=== PATIENT | male | born 1935 | race Two or more races ===

== ENCOUNTER 2019-06-19 20:52 | Inpatient (IN) | payer OTHER, MEDICARE ==
[2019-06-19] MEDS ORDERED: NORMAL SALINE 1000 ML 1,000 ML IV ONE ×2 (21:38→22:09)
--- NOTE | 2019-06-19 21:41 | ER Document Report ---
ED General - General Stated Complaint: FEVER Time Seen by Provider: 06/19/19 21:28 Notes: Patient is an 84-year-old male that comes emergency department for chief complai nt of shaking chills with suspected fever at home, he vomited twice, he reports feeling generally weak. Symptoms started today. Patient denies cough, chest pain, dizziness, headache, or any particular abdominal pain. He states he has been hurting on the left side of his back for a little while. He is visiting his family from [place]. Past medical history of hypertension, triple bypass, and takes daily aspirin. 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 He is not on chemotherapy or radiation. and daughter at bedside, daughter tra nslating at the patient's request. Patient did receive 1000 mg of Tylenol at 1930. - Related Data Allergies/Adverse Reactions: No Known Allergies Allergy (Verified 06/19/19 22:00) Past Medical History - General Information source: Patient - Social History Smoking Status: Never Smoker Drug Abuse: None Lives with: Family Family History: Reviewed & Not Pertinent - Past Medical History Cardiac Medical History: Reports: Hx Coronary Artery Disease, Hx Hypertension Past Surgical History: Reports: Hx Coronary Artery Bypass Graft Review of Systems - Review of Systems Constitutional: See HPI EENT: No symptoms reported Cardiovascular: No symptoms reported Respiratory: No symptoms reported Gastrointestinal: See HPI Genitourinary: No symptoms reported Male Genitourinary: No symptoms reported Musculoskeletal: No symptoms reported Skin: No symptoms reported Hematologic/Lymphatic: No symptoms reported Neurological/Psychological: No symptoms reported Physical Exam - Vital signs Vitals: Temp Pulse Resp BP Pulse Ox 99.7 F 95 16 72/40 L 98 06/19/19 21:03 06/19/19 21:03 06/19/19 21:03 06/19/19 21:03 06/19/19 21:03 - Notes Notes: GENERAL: Alert, interacts well. HEAD: Normocephalic, atraumatic. EYES: Pupils equal, round, and reactive to light. Extraocular movements intact. ENT: Oral mucosa moist, tongue midline. Oropharynx unremarkable. Airway patent. NECK: Full range of motion. Supple. Trachea midline. LUNGS: Clear to auscultation bilaterally, no wheezes, rales, or rhonchi. No respiratory distress. HEART: Regular rate and rhythm. No murmur ABDOMEN: Generalized abdominal tenderness without specific tenderness, rigidity, swelling, or guarding. GENITOURINARY: Old scarring noted in the right inguinal area, no abnormal swelling, erythema, or tenderness noted over the external genitalia and groin. EXTREMITIES: Moves all 4 extremities spontaneously. No edema, normal radial and dorsalis pedis pulses bilaterally. No cyanosis. BACK: no cervical, thoracic, lumbar midline tenderness. No saddle anesthesia, normal distal neurovascular exam. Moves all extremities in full range of motion. NEUROLOGICAL: Alert and oriented x3. Normal speech. Cranial nerves II through XII grossly intact. PSYCH: Normal affect, normal mood. SKIN: Warm, dry, normal turgor. No rashes or lesions noted. Course - Re-evaluation Re-evalutation: Initial blood pressure was 72 systolic, patient is still alert and oriented, he is actually surprisingly well-appearing. He is not tachycardic. His physical exam is quite unremarkable, he has mild generalized abdominal tenderness but otherwise his exam is normal. 2 peripheral IVs were immediately placed, patient was given 2 L saline bolus. His blood pressure did respond to this and normalized to a map greater than 65. CBC shows leukocytosis at 24,000 with bandemia at 8%. Lactic acid is 3.6. Concerning for sepsis with hypotension. Urinalysis not very convincing, chest x-ray negative, patient with no headache or nuchal rigidity, there is some generalized abdominal tenderness with flank pain and vomiting, CAT scan will be performed. Patient and family state agreement. Blood pressure is still with map in the 70s after IV fluid resuscitation. Starting on broad-spectrum antibiotics. Cultures pending. CAT scan showing colitis, nonspecific otherwise with stones but patient has no right upper quadrant tenderness, based on his labs and exam I have very low suspicion of acute cholecystitis. I discussed with family at length, patient will be discussed with hospitalist for admission for hypotension, suspected sepsis, colitis. I discussed with Dr. Velazco, hospitalist, patient accepted for [facility] admission. Family and patient state appreciation and agreement. - Vital Signs Vital signs: Temp Pulse Resp BP Pulse Ox 98.6 F 76 21 H 113/56 L 100 06/20/19 02:11 06/20/19 02:11 06/20/19 02:11 06/20/19 02:11 06/20/19 02:11 - Laboratory Result Diagrams: 06/19/19 21:35 06/19/19 21:35 Laboratory results interpreted by me: 06/19/19 06/19/19 06/19/19 21:35 21:35 21:35 WBC 22.1 H RBC 3.69 L Hgb 11.3 L Hct 34.0 L Seg Neuts % (Manual) 82 H Band Neutrophils % 8 H Lymphocytes % (Manual) 7 L Abs Neuts (Manual) 19.9 H VBG pCO2 VBG HCO3 Carbon Dioxide 20 L BUN 24 H Creatinine 1.80 H Est GFR ( Amer) 44 L Est GFR (MDRD) Non-Af 36 L Lactic Acid 3.6 H Ur Leukocyte Esterase 06/19/19 06/19/19 21:35 22:46 WBC RBC Hgb Hct Seg Neuts % (Manual) Band Neutrophils % Lymphocytes % (Manual) Abs Neuts (Manual) VBG pCO2 34.0 L VBG HCO3 18.3 L Carbon Dioxide BUN Creatinine Est GFR ( Amer) Est GFR (MDRD) Non-Af Lactic Acid Ur Leukocyte Esterase LARGE H Critical Care Note - Critical Care Note Total time excluding time spent on procedures (mins): 35 - Sepsis, hypotension Comments: Please allow 35 minutes of critical care time for evaluation and management of patient with hypotension from sepsis requiring fluid resuscitation, broad- spectrum antibiotics, multiple re-evaluations, consultation and admission to the hospital. Discharge - Discharge Clinical Impression: Colitis, Bandemia, Acute renal insufficiency, Flank pain Hypotension Qualifiers: Hypotension type: unspecified hypotension type Qualified Code(s): I95.9 - Hypotension, unspecified Vomiting Qualifiers: Vomiting type: unspecified Vomiting Intractability: non-intractable Nausea presence: unspecified Qualified Code(s): R11.10 - Vomiting, unspecified Condition: Fair Disposition: ADMITTED INPATIENT Admitting Provider: Juan A (Hospitalist) Unit Admitted: [facility]
[2019-06-19 21:49] LABS: VENOUS BLOOD BASE EXCESS -6.5 mmol/L; VENOUS BLOOD HCO3 18.3 mmol/L (20-32); VENOUS BLOOD PH 7.35 (7.30-7.42)
[2019-06-19 21:58] LABS: HEMOGLOBIN 11.3 g/dL (13.5-17.0); MEAN CORPUSCULAR HEMOGLOBIN 30.6 pg (27.0-33.4); MEAN CORPUSCULAR HGB CONC 33.2 g/dL (32.0-36.0); MEAN CORPUSCULAR VOLUME 92 fl (80-97); PLATELET COUNT 160 10^3/uL (150-450); RED BLOOD COUNT 3.69 10^6/uL (4.35-5.55); RED CELL DISTRIBUTION WIDTH 13.3 % (11.5-14.0); WHITE BLOOD COUNT 22.1 10^3/uL (4.0-10.5)
[2019-06-19 22:06] LABS: ALKALINE PHOSPHATASE 45 U/L (38-126); ANION GAP 14 (5-19); ASPARTATE AMINO TRANSFERASE 24 U/L (17-59); BILIRUBIN,DIRECT 0.1 mg/dL (0.0-0.4); BILIRUBIN,TOTAL 0.9 mg/dL (0.2-1.3); BLOOD UREA NITROGEN 24 mg/dL (7-20); CALCIUM 9.7 mg/dL (8.4-10.2); CARBON DIOXIDE 20 mmol/L (22-30); CHLORIDE 103 mmol/L (98-107); GLUCOSE 105 mg/dL (75-110); POTASSIUM 4.1 mmol/L (3.6-5.0); TOTAL PROTEIN 6.9 g/dL (6.3-8.2)
[2019-06-19] MEDS ORDERED: VANCOMYCIN HCL INJ 1000 MG VIAL IV ONE (22:09)
[2019-06-19] MEDS ORDERED: PIPERACILLIN/TAZOBACTAM 3.375 GM VIAL IV ONE (22:09)
[2019-06-19 22:25] LABS: ABSOLUTE LYMPHOCYTES# (MANUAL) 1.5 10^3/uL (0.5-4.7); ABSOLUTE MONOCYTES # (MANUAL) 0.7 10^3/uL (0.1-1.4); BAND NEUTROPHILS % (MANUAL) 8 % (3-5); BASOPHILS % (MANUAL) 0 % (0-2); EOSINOPHILS % (MANUAL) 0 % (0-6); LYMPHOCYTES % (MANUAL) 7 % (13-45); MONOCYTES % (MANUAL) 3 % (3-13); RBC MORPHOLOGY COMMENT NORMO-CYTIC/CHROMIC; SEGMENTED NEUTROPHILS % (MAN) 82 % (42-78); TOTAL CELLS COUNTED 100
[2019-06-19 22:26] LABS: PLATELET COMMENT ADEQUATE
--- NOTE | 2019-06-19 22:26 | RADIOLOGY REPORT (SQ) ---
EXAM DESCRIPTION: XR CHEST 1 VIEW COMPLETED DATE/TME: 06/19/2019 21:37 CLINICAL HISTORY: 84 years, Male, fever, hypotension COMPARISON: None. NUMBER OF VIEWS: One TECHNIQUE: Single frontal view of the chest was obtained portably LIMITATIONS: None. FINDINGS: Status post median sternotomy. Cardiac and mediastinal contours are normal. Calcified granuloma projects about the right lung base. No focal consolidation, pleural effusion, or pneumothorax is evident. IMPRESSION: Negative low lung volume study. copyright 2010 [employer]- All Rights Reserved
[2019-06-19] MEDS ORDERED: LIDOCAINE 2% URO-JET 5 ML KIT MM ONE (22:41)
[2019-06-19 23:29] LABS: APPEARANCE,URINE SLIGHTLY-CLOUDY; BILIRUBIN,URINE NEGATIVE (NEGATIVE); COLOR,URINE YELLOW; GLUCOSE, URINE NEGATIVE (NEGATIVE); KETONES,URINE NEGATIVE (NEGATIVE); LEUKOCYTE ESTERASE,URINE LARGE (NEGATIVE); NITRITE,URINE NEGATIVE (NEGATIVE); PROTEIN,URINE NEGATIVE (NEGATIVE); URINE SPECIFIC GRAVITY 1.014; UROBILINOGEN,URINE NEGATIVE mg/dL (<2.0)
--- NOTE | 2019-06-20 00:18 | RADIOLOGY REPORT (SQ) ---
EXAM DESCRIPTION: CT ABDOMEN PELVIS WITHOUT IV CONTRAST COMPLETED DATE/TME: 06/19/2019 22:42 CLINICAL HISTORY: 84 years, Male, left flank pain, vomiting, fever COMPARISON: None. TECHNIQUE: Noncontrast CT of the abdomen/pelvis were acquired. Coronal and sagittal reformations were created. Images stored on PACS. All CT scanners at this facility use dose modulation, iterative reconstruction, and/or weight based dosing when appropriate to reduce radiation dose to as low as reasonably achievable (ALARA). [facility]: Dose Right [facility]: CareDose [facility]: Dose Right [facility]: Teradose 4D [facility]: SecurActive LIMITATIONS: None. FINDINGS: Limited evaluation of the lower chest reveals clear lung bases. A calcified granuloma is noted about the right lower lobe. Small hiatal hernia is noted. The liver, spleen, pancreas, and both adrenal glands appear normal. Hyperdensity layers dependently within the gallbladder neck, indicating sludge and/or small stones. Both kidneys are normal in their noncontrast appearance. No hydronephrosis or hydroureter. Urinary bladder is well distended and shows no suspicious finding. Prostate gland is enlarged. A few scattered colonic diverticula are noted. No adjacent inflammation. Appendix is normal. No evidence of bowel obstruction. There is likely some degree of rectosigmoid colonic wall thickening. Calcifications are evident about the abdominal aorta and proximal iliac vessels. No lymphadenopathy or drainable fluid collections are appreciated. Bone windows show no destructive osseous lesions. A Schmorl's node deformity is noted about the inferior endplate of L2. IMPRESSION: Mild circumferential wall thickening involving the rectosigmoid colonic wall. Correlate for an infectious or inflammatory colitis. Prostatomegaly. Cholelithiasis and/or gallbladder sludge. Tiny hiatal hernia. TECHNICAL DOCUMENTATION: Quality ID # 436: Final reports with documentation of one or more dose reduction techniques (e.g., Automated exposure control, adjustment of the mA and/or kV according to patient size, use of iterative reconstruction technique) copyright 2011 [employer]- All Rights Reserved
[2019-06-20] MEDS ORDERED: ACETAMINOPHEN 325 MG TABLET PO PRN (01:42)
[2019-06-20] MEDS ORDERED: ONDANSETRON 4 MG TAB.RAPDIS PO PRN (01:42)
[2019-06-20] MEDS ORDERED: IPRATROPIUM/ALBUTEROL 0.5-2.5 MG/3 ML AMPUL NEB PRN (01:42)
[2019-06-20] MEDS ORDERED: NORMAL SALINE 1000 ML 1,000 ML IV PRN (01:45)
[2019-06-20] MEDS ORDERED: IMIPENEM/CILASTATIN SODIUM INJ 500 MG VIAL IV PRN (02:55)
[2019-06-20] MEDS ORDERED: IMIPENEM/CILASTATIN SODIUM 1,000 MG in NORMAL SALINE 250 ML IV ONE (03:00)
--- NOTE | 2019-06-20 05:07 | PDOC H&P ---
History of Present Illness Admission Date/PCP: 06/20/19 00:37 Patient complains of: Fever History of Present Illness: FREDO QUINTERO is a 84 year old Yoruba-speaking male with a past medical history of hypertension, iron deficiency anemia and coronary artery disease status post bypass graft 5 years ago. He presents with 24 hours of fever, nausea vomiting of gastric content and diarrhea preceded by prolonged constipation. In the emergency room he is found to have sepsis, hypotension, bandemia, lactic acidosis, acute renal failure and a CT suggestive of rectosigmoid colitis. He started on an IV fluid challenge, empiric antibiotics and referred to the hospitalist for admission. Patient denies previous episode, recent antibiotic use and is otherwise been well. Past Medical History Cardiac Medical History: Reports: Coronary Artery Disease, Hypertension Past Surgical History Past Surgical History: Reports: Coronary Artery Bypass Graft Social History Information Source: Patient Lives with: Spouse/Significant other Smoking Status: Never Smoker Frequency of Alcohol Use: None Drugs: None - Advance Directive Resuscitation Status: Full Code Family History Family History: Arthritis, CAD, COPD Parental Family History Reviewed: Yes Children Family History Reviewed: Yes Sibling(s) Family History Reviewed.: Yes Medication/Allergy Allergies/Adverse Reactions: No Known Allergies Allergy (Verified 06/19/19 22:00) Review of Systems Constitutional: ABSENT: chills, fever(s), headache(s), weight gain, weight loss Eyes: ABSENT: visual disturbances Ears: ABSENT: hearing changes Cardiovascular: ABSENT: chest pain, dyspnea on exertion, edema, orthropnea, palpitations Respiratory: ABSENT: cough, hemoptysis Gastrointestinal: PRESENT: constipation. ABSENT: abdominal pain, diarrhea, hematemesis, hematochezia, nausea, vomiting Genitourinary: ABSENT: dysuria, hematuria Musculoskeletal: ABSENT: joint swelling Integumentary: ABSENT: rash, wounds Neurological: ABSENT: abnormal gait, abnormal speech, confusion, dizziness, focal weakness, syncope Psychiatric: ABSENT: anxiety, depression, homidical ideation, suicidal ideation Endocrine: ABSENT: cold intolerance, heat intolerance, polydipsia, polyuria Hematologic/Lymphatic: ABSENT: easy bleeding, easy bruising Physical Exam Vital Signs: Temp Pulse Resp BP Pulse Ox 98.6 F 76 21 H 113/56 L 100 06/20/19 02:22 06/20/19 02:22 06/20/19 02:22 06/20/19 02:22 06/20/19 02:22 Intake & Output 06/18/19 06/19/19 06/20/19 11:59 11:59 11:59 Intake Total 1999 Balance 1999 Weight 64.7 kg General appearance: PRESENT: cooperative, mild distress, well-developed, well- nourished. ABSENT: disheveled Head exam: PRESENT: atraumatic, normocephalic Eye exam: PRESENT: conjunctiva pink, EOMI, PERRLA. ABSENT: scleral icterus Ear exam: PRESENT: normal external ear exam Mouth exam: PRESENT: moist, tongue midline Neck exam: ABSENT: carotid bruit, JVD, lymphadenopathy, thyromegaly Respiratory exam: PRESENT: clear to auscultation darnell. ABSENT: rales, rhonchi, wheezes Cardiovascular exam: PRESENT: RRR. ABSENT: diastolic murmur, rubs, systolic murmur Pulses: PRESENT: normal dorsalis pedis pul Vascular exam: PRESENT: normal capillary refill GI/Abdominal exam: PRESENT: hyperactive bowel sounds, tenderness - Left lower quadrant. ABSENT: distended, firm, guarding Rectal exam: PRESENT: deferred Extremities exam: PRESENT: full ROM. ABSENT: calf tenderness, clubbing, pedal edema Neurological exam: PRESENT: alert, awake, oriented to person, oriented to place, oriented to time, oriented to situation, CN II-XII grossly intact. ABSENT: motor sensory deficit Psychiatric exam: PRESENT: appropriate affect, normal mood. ABSENT: homicidal ideation, suicidal ideation Skin exam: PRESENT: dry, intact, warm. ABSENT: cyanosis, rash Results Laboratory Results: 06/19/19 06/19/19 06/19/19 21:35 21:35 21:35 WBC 22.1 H RBC 3.69 L Hgb 11.3 L Hct 34.0 L MCV 92 MCH 30.6 MCHC 33.2 RDW 13.3 Plt Count 160 Seg Neutrophils % Not Reportable VBG pH VBG pCO2 VBG HCO3 VBG Base Excess Sodium 137.0 Potassium 4.1 Chloride 103 Carbon Dioxide 20 L Anion Gap 14 BUN 24 H Creatinine 1.80 H Est GFR ( Amer) 44 L Glucose 105 Lactic Acid 3.6 H Calcium 9.7 Total Bilirubin 0.9 AST 24 Alkaline Phosphatase 45 Total Protein 6.9 Albumin 4.0 Lipase 37.4 Urine Color Urine Appearance Urine pH Ur Specific [place] Urine Protein Urine Glucose (UA) Urine Ketones Urine Blood Urine Nitrite Ur Leukocyte Esterase Urine WBC (Auto) Urine RBC (Auto) 06/19/19 06/19/19 21:35 22:46 WBC RBC Hgb Hct MCV MCH MCHC RDW Plt Count Seg Neutrophils % VBG pH 7.35 VBG pCO2 34.0 L VBG HCO3 18.3 L VBG Base Excess -6.5 Sodium Potassium Chloride Carbon Dioxide Anion Gap BUN Creatinine Est GFR ( Amer) Glucose Lactic Acid Calcium Total Bilirubin AST Alkaline Phosphatase Total Protein Albumin Lipase Urine Color YELLOW Urine Appearance SLIGHTLY-CLOUDY Urine pH 5.0 Ur Specific [place] 1.014 Urine Protein NEGATIVE Urine Glucose (UA) NEGATIVE Urine Ketones NEGATIVE Urine Blood NEGATIVE Urine Nitrite NEGATIVE Ur Leukocyte Esterase LARGE H Urine WBC (Auto) 8 Urine RBC (Auto) 1 06/19/19 21:35 Troponin I < 0.012 Impressions: Chest X-Ray 06/19/19 21:37 IMPRESSION: Negative low lung volume study. copyright 2010 [employer]- All Rights Reserved Abdomen/Pelvis CT 06/19/19 22:42 IMPRESSION: Mild circumferential wall thickening involving the rectosigmoid colonic wall. Correlate for an infectious or inflammatory colitis. Prostatomegaly. Cholelithiasis and/or gallbladder sludge. Tiny hiatal hernia. TECHNICAL DOCUMENTATION: Quality ID # 436: Final reports with documentation of one or more dose reduction techniques (e.g., Automated exposure control, adjustment of the mA and/or kV according to patient size, use of iterative reconstruction technique) copyright 2010 [employer]- All Rights Reserved Assessment and Plan - Diagnosis (1) Colitis Is this a current diagnosis for this admission?: Yes Plan: Likely fecal colitis following prolonged constipation, given sepsis imipenem and IV fluid challenge ordered. Follow-up lactic acid, CBC and blood culture (2) Sepsis Is this a current diagnosis for this admission?: Yes Plan: Secondary to #1, follow-up CBC and blood culture (3) Acute renal insufficiency Is this a current diagnosis for this admission?: Yes Plan: Unclear chronicity, possibly secondary to #1 and associated hypotension with sepsis. IV fluid challenge, avoid nephrotoxic meds and doses follow-up chemistry (4) Bandemia Is this a current diagnosis for this admission?: Yes Plan: Secondary to #1, imipenem ordered, follow-up blood culture - Time Time Spent with patient: 25-34 minutes - Inpatient Certification Medical Necessity: Need Close Monitoring Due to Risk of Patient Decompensation
[2019-06-20 05:09] LABS: HEMATOCRIT 28.5 % (37.9-51.0); HEMOGLOBIN 9.6 g/dL (13.5-17.0); MEAN CORPUSCULAR HEMOGLOBIN 30.7 pg (27.0-33.4); MEAN CORPUSCULAR HGB CONC 33.7 g/dL (32.0-36.0); MEAN CORPUSCULAR VOLUME 91 fl (80-97); PLATELET COUNT 126 10^3/uL (150-450); RED BLOOD COUNT 3.13 10^6/uL (4.35-5.55); RED CELL DISTRIBUTION WIDTH 13.4 % (11.5-14.0); WHITE BLOOD COUNT 22.8 10^3/uL (4.0-10.5)
[2019-06-20] MEDS ORDERED: IMIPENEM/CILASTATIN SODIUM INJ 500 MG VIAL IV ONE (05:23)
[2019-06-20 05:26] LABS: ANION GAP 10 (5-19); BLOOD UREA NITROGEN 24 mg/dL (7-20); CALCIUM 8.4 mg/dL (8.4-10.2); CARBON DIOXIDE 20 mmol/L (22-30); CHLORIDE 108 mmol/L (98-107); GLUCOSE 89 mg/dL (75-110); POTASSIUM 3.8 mmol/L (3.6-5.0)
[2019-06-20 05:59] LABS: ABSOLUTE LYMPHOCYTES# (MANUAL) 2.3 10^3/uL (0.5-4.7); ABSOLUTE MONOCYTES # (MANUAL) 1.1 10^3/uL (0.1-1.4); BAND NEUTROPHILS % (MANUAL) 5 % (3-5); BASOPHILS % (MANUAL) 0 % (0-2); EOSINOPHILS % (MANUAL) 0 % (0-6); LYMPHOCYTES % (MANUAL) 10 % (13-45); MONOCYTES % (MANUAL) 5 % (3-13); RBC MORPHOLOGY COMMENT NORMO-CYTIC/CHROMIC; SEGMENTED NEUTROPHILS % (MAN) 80 % (42-78); TOTAL CELLS COUNTED 100
[2019-06-20] MEDS ORDERED: IMIPENEM/CILASTATIN SODIUM 1,000 MG in NORMAL SALINE 250 ML IV SCH (06:00)
[2019-06-20 06:08] LABS: PLATELET COMMENT DECREASED
--- NOTE | 2019-06-20 06:23 | EKG REPORT ---
SEVERITY:- ABNORMAL ECG - SINUS RHYTHM LAD, CONSIDER LAFB OR INFERIOR INFARCT BORDERLINE T ABNORMALITIES, ANT-LAT LEADS : Confirmed by: Imer Felder MD 20-Jun-2019 06:23:08
[2019-06-20] MEDS: HEPARIN SOD (PORCINE) 5,000 UNIT/ML 1 ML VIAL SUBCUT SCH ×3 (06:26→22:06)
[2019-06-20] MEDS: DOCUSATE SODIUM 100 MG CAPSULE PO SCH ×2 (09:41→18:21)
[2019-06-20] MEDS ORDERED: IMIPENEM/CILASTATIN SODIUM 500 MG in NORMAL SALINE 100 ML IV SCH (10:00)
[2019-06-20] MEDS: IMIPENEM/CILASTATIN SODIUM 500 MG in NORMAL SALINE 100 ML IV SCH ×2 (14:07→22:31)
--- NOTE | 2019-06-20 14:59 | PDOC PROGRESS REPORT ---
Subjective Progress Note for:: 06/20/19 Subjective:: ANNE sole buffer No appetite but no pain at the time of this visit. Food tray sits untouched. Reason For Visit: SEPSIS,COLITIS,ARF Physical Exam Vital Signs: Temp Pulse Resp BP Pulse Ox 98.5 F 68 17 125/54 L 97 06/20/19 11:09 06/20/19 14:00 06/20/19 11:09 06/20/19 11:09 06/20/19 11:09 Intake & Output 06/19/19 06/20/19 06/21/19 06:59 06:59 06:59 Intake Total 2049 480 Output Total 0 Balance 2049 480 Weight 64.2 kg General appearance: PRESENT: no acute distress, well-developed Head exam: PRESENT: atraumatic, normocephalic Ear exam: PRESENT: normal external ear exam. ABSENT: bleeding, drainage Respiratory exam: PRESENT: clear to auscultation darnell, symmetrical, unlabored. ABSENT: accessory muscle use, rales, rhonchi, tachypnea, wheezes Cardiovascular exam: PRESENT: RRR, +S1, +S2 GI/Abdominal exam: PRESENT: normal bowel sounds, soft. ABSENT: distended, tenderness Rectal exam: PRESENT: deferred Neurological exam: PRESENT: alert, awake, oriented to person, oriented to place, oriented to situation - per interprater, CN II-XII grossly intact Psychiatric exam: PRESENT: appropriate affect. ABSENT: agitated, anxious Focused psych exam: ABSENT: delusional, restlessness Skin exam: PRESENT: dry, normal color, warm. ABSENT: rash Results Laboratory Results: 06/20/19 04:49 06/20/19 04:49 06/19/19 06/19/19 06/19/19 21:35 21:35 21:35 WBC 22.1 H RBC 3.69 L Hgb 11.3 L Hct 34.0 L MCV 92 MCH 30.6 MCHC 33.2 RDW 13.3 Plt Count 160 Seg Neutrophils % Not Reportable VBG pH VBG pCO2 VBG HCO3 VBG Base Excess Sodium 137.0 Potassium 4.1 Chloride 103 Carbon Dioxide 20 L Anion Gap 14 BUN 24 H Creatinine 1.80 H Est GFR ( Amer) 44 L Glucose 105 Lactic Acid 3.6 H Calcium 9.7 Total Bilirubin 0.9 AST 24 Alkaline Phosphatase 45 Total Protein 6.9 Albumin 4.0 Lipase 37.4 Urine Color Urine Appearance Urine pH Ur Specific [place] Urine Protein Urine Glucose (UA) Urine Ketones Urine Blood Urine Nitrite Ur Leukocyte Esterase Urine WBC (Auto) Urine RBC (Auto) 06/19/19 06/19/19 06/20/19 21:35 22:46 04:49 WBC 22.8 H RBC 3.13 L Hgb 9.6 L Hct 28.5 L MCV 91 MCH 30.7 MCHC 33.7 RDW 13.4 Plt Count 126 L Seg Neutrophils % Not Reportable VBG pH 7.35 VBG pCO2 34.0 L VBG HCO3 18.3 L VBG Base Excess -6.5 Sodium Potassium Chloride Carbon Dioxide Anion Gap BUN Creatinine Est GFR ( Amer) Glucose Lactic Acid Calcium Total Bilirubin AST Alkaline Phosphatase Total Protein Albumin Lipase Urine Color YELLOW Urine Appearance SLIGHTLY-CLOUDY Urine pH 5.0 Ur Specific [place] 1.014 Urine Protein NEGATIVE Urine Glucose (UA) NEGATIVE Urine Ketones NEGATIVE Urine Blood NEGATIVE Urine Nitrite NEGATIVE Ur Leukocyte Esterase LARGE H Urine WBC (Auto) 8 Urine RBC (Auto) 1 06/20/19 06/20/19 04:49 05:50 WBC RBC Hgb Hct MCV MCH MCHC RDW Plt Count Seg Neutrophils % VBG pH VBG pCO2 VBG HCO3 VBG Base Excess Sodium 138.1 Potassium 3.8 Chloride 108 H Carbon Dioxide 20 L Anion Gap 10 BUN 24 H Creatinine 1.53 H Est GFR ( Amer) 53 L Glucose 89 Lactic Acid 1.4 Calcium 8.4 Total Bilirubin AST Alkaline Phosphatase Total Protein Albumin Lipase Urine Color Urine Appearance Urine pH Ur Specific [place] Urine Protein Urine Glucose (UA) Urine Ketones Urine Blood Urine Nitrite Ur Leukocyte Esterase Urine WBC (Auto) Urine RBC (Auto) 06/19/19 21:35 Troponin I < 0.012 Impressions: Chest X-Ray 06/19/19 21:37 IMPRESSION: Negative low lung volume study. copyright 2011 [employer]- All Rights Reserved Abdomen/Pelvis CT 06/19/19 22:42 IMPRESSION: Mild circumferential wall thickening involving the rectosigmoid colonic wall. Correlate for an infectious or inflammatory colitis. Prostatomegaly. Cholelithiasis and/or gallbladder sludge. Tiny hiatal hernia. TECHNICAL DOCUMENTATION: Quality ID # 436: Final reports with documentation of one or more dose reduction techniques (e.g., Automated exposure control, adjustment of the mA and/or kV according to patient size, use of iterative reconstruction technique) copyright 2011 [employer]- All Rights Reserved Assessment and Plan - Diagnosis (1) Colitis Is this a current diagnosis for this admission?: Yes Plan: 06/20/2019-continue antibiotic therapy at this time. Continue clear liquid diet until patient is tolerating it without difficulty. The patient will be referred to gastroenterology for possible colonoscopy post discharge. (2) Sepsis Qualifiers: Sepsis type: sepsis due to unspecified organism Sepsis acute organ dysfunc tion status: with acute organ dysfunction Severe sepsis acute organ dysfu nction type: acute renal failure Severe sepsis shock status: without septic shock Is this a current diagnosis for this admission?: Yes Plan: 06/20/2019-the patient does look improved today. His reports that he is somewhat better. Lactic acid has normalized. I have slowed the rate of fluids. Continue antibiotics for presumed infectious colitis. (3) Acute renal insufficiency Is this a current diagnosis for this admission?: Yes Plan: 06/20/2019-improved after several hours of IV fluids. Continue to monitor renal function. (4) Hypotension Qualifiers: Hypotension type: unspecified hypotension type Qualified Code(s): I95.9 - Hypotension, unspecified Is this a current diagnosis for this admission?: Yes Plan: 06/20/2019-resolved with IV fluids (5) Vomiting Qualifiers: Vomiting type: unspecified Vomiting Intractability: non-intractable Nausea presence: unspecified Qualified Code(s): R11.10 - Vomiting, unspecified Is this a current diagnosis for this admission?: Yes Plan: 06/20/2019-continue symptomatic management with as needed medications. - Time Time Spent with patient: 25-34 minutes - Additional time was required to use the ANNE sole buffer present in the room. Medications reviewed and adjusted accordingly: Yes Anticipated discharge: Home
[2019-06-20] MEDS: NORMAL SALINE 1000 ML 1,000 ML IV PRN (18:22)
[2019-06-21] MEDS: HEPARIN SOD (PORCINE) 5,000 UNIT/ML 1 ML VIAL SUBCUT SCH ×3 (05:19→21:19)
[2019-06-21] MEDS: NORMAL SALINE 1000 ML 1,000 ML IV PRN ×2 (05:29→23:47)
[2019-06-21] MEDS: IMIPENEM/CILASTATIN SODIUM 500 MG in NORMAL SALINE 100 ML IV SCH ×3 (05:29→21:21)
[2019-06-21 05:44] LABS: ABSOLUTE MONOCYTES (AUTO) 1.1 10^3/uL (0.1-1.4); ABSOLUTE NEUT (AUTO) 12.6 10^3/uL (1.7-8.2); BASOPHILS % (AUTO) 0.2 % (0-2); EOSINOPHILS % (AUTO) 0.3 % (0-6); HEMATOCRIT 27.3 % (37.9-51.0); HEMOGLOBIN 9.2 g/dL (13.5-17.0); LYMPHOCYTES % (AUTO) 12.5 % (13-45); MEAN CORPUSCULAR HEMOGLOBIN 30.8 pg (27.0-33.4); MEAN CORPUSCULAR HGB CONC 33.7 g/dL (32.0-36.0); MEAN CORPUSCULAR VOLUME 92 fl (80-97); MONOCYTES % (AUTO) 6.8 % (3-13); PLATELET COUNT 116 10^3/uL (150-450); RED BLOOD COUNT 2.99 10^6/uL (4.35-5.55); RED CELL DISTRIBUTION WIDTH 13.5 % (11.5-14.0); SEGMENTED NEUTROPHILS % (AUTO) 80.2 % (42-78); TOTAL CELLS COUNTED % (AUTO) 100 %; WHITE BLOOD COUNT 15.7 10^3/uL (4.0-10.5)
[2019-06-21 06:00] LABS: ANION GAP 7 (5-19); BLOOD UREA NITROGEN 18 mg/dL (7-20); CALCIUM 8.6 mg/dL (8.4-10.2); CARBON DIOXIDE 21 mmol/L (22-30); CHLORIDE 111 mmol/L (98-107); GLUCOSE 77 mg/dL (75-110); POTASSIUM 3.7 mmol/L (3.6-5.0)
[2019-06-21] MEDS ORDERED: INFLUENZA QUAD (6MOS+) 2019-20 VAC 0.5 ML SYR IM ONE (08:00)
[2019-06-21] MEDS: DOCUSATE SODIUM 100 MG CAPSULE PO SCH ×2 (11:01→18:17)
[2019-06-21] MEDS: ASPIRIN 81 MG TABLET, ENT COATED PO SCH (11:02)
--- NOTE | 2019-06-21 11:56 | PDOC PROGRESS REPORT ---
Subjective Progress Note for:: 06/21/19 Subjective:: The patient is resting comfortably. His [id number] is visiting. They report no new complaints. His appetite is slightly better. Reason For Visit: SEPSIS,COLITIS,ARF Physical Exam Vital Signs: Temp Pulse Resp BP Pulse Ox 97.6 F 58 L 16 126/51 H 98 06/21/19 11:37 06/21/19 11:37 06/21/19 11:37 06/21/19 11:37 06/21/19 11:37 Intake & Output 06/20/19 06/21/19 06/22/19 06:59 06:59 06:59 Intake Total 2049 1580 Output Total 0 325 Balance 2049 1255 Weight 64.2 kg 64.7 kg General appearance: PRESENT: no acute distress, cooperative, well-developed Head exam: PRESENT: atraumatic, normocephalic Eye exam: PRESENT: conjunctiva pink. ABSENT: scleral icterus Ear exam: PRESENT: normal external ear exam. ABSENT: bleeding, drainage Mouth exam: PRESENT: moist, tongue midline Respiratory exam: PRESENT: clear to auscultation darnell, symmetrical, unlabored. ABSENT: accessory muscle use, rales, rhonchi, tachypnea, wheezes Cardiovascular exam: PRESENT: RRR, +S1, +S2. ABSENT: systolic murmur GI/Abdominal exam: PRESENT: normal bowel sounds, soft. ABSENT: distended, tenderness Rectal exam: PRESENT: deferred Extremities exam: ABSENT: joint swelling, pedal edema Musculoskeletal exam: PRESENT: normal inspection. 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 ABSENT: agitated, anxious Focused psych exam: ABSENT: delusional, restlessness Skin exam: PRESENT: dry, normal color, warm. ABSENT: rash Results Laboratory Results: 06/21/19 05:27 06/21/19 05:27 06/21/19 06/21/19 05:27 05:27 WBC 15.7 H RBC 2.99 L Hgb 9.2 L Hct 27.3 L MCV 92 MCH 30.8 MCHC 33.7 RDW 13.5 Plt Count 116 L Seg Neutrophils % 80.2 H Sodium 139.3 Potassium 3.7 Chloride 111 H Carbon Dioxide 21 L Anion Gap 7 BUN 18 Creatinine 1.26 H Est GFR ( Amer) > 60 Glucose 77 Calcium 8.6 06/19/19 21:35 Troponin I < 0.012 Impressions: Chest X-Ray 06/19/19 21:37 IMPRESSION: Negative low lung volume study. copyright 2010 [employer]- All Rights Reserved Abdomen/Pelvis CT 06/19/19 22:42 IMPRESSION: Mild circumferential wall thickening involving the rectosigmoid colonic wall. Correlate for an infectious or inflammatory colitis. Prostatomegaly. Cholelithiasis and/or gallbladder sludge. Tiny hiatal hernia. TECHNICAL DOCUMENTATION: Quality ID # 436: Final reports with documentation of one or more dose reduction techniques (e.g., Automated exposure control, adjustment of the mA and/or kV according to patient size, use of iterative reconstruction technique) copyright 2010 [employer]- All Rights Reserved Assessment and Plan - Diagnosis (1) Colitis Is this a current diagnosis for this admission?: Yes Plan: 06/20/2019-continue antibiotic therapy at this time. Continue clear liquid diet until patient is tolerating it without difficulty. The patient will be referred to gastroenterology for possible colonoscopy post discharge. 06/21/2019-I will advance patient's diet. If he tolerates more substantial food he can possibly go home tomorrow. We will continue antibiotic therapy. (2) Sepsis Qualifiers: Sepsis type: sepsis due to unspecified organism Sepsis acute organ dysfunction status: with acute organ dysfunction Severe sepsis acute organ dysfunction type: acute renal failure Severe sepsis shock status: without septic shock Is this a current diagnosis for this admission?: Yes Plan: 06/20/2019-the patient does look improved today. His reports that he is somewhat better. Lactic acid has normalized. I have slowed the rate of fluids. Continue antibiotics for presumed infectious colitis. 06/21/2019-resolved (3) Acute renal insufficiency Is this a current diagnosis for this admission?: Yes Plan: 06/20/2019-improved after several hours of IV fluids. Continue to monitor renal function. 06/21/2019-improving. Continue IV fluid. (4) Hypotension Qualifiers: Hypotension type: unspecified hypotension type Qualified Code(s): I95.9 - Hypotension, unspecified Is this a current diagnosis for this admission?: Yes Plan: 06/20/2019-resolved with IV fluids 06/21/2019-resolved. Blood pressure stable. (5) Vomiting Qualifiers: Vomiting type: unspecified Vomiting Intractability: non-intractable Nausea presence: unspecified Qualified Code(s): R11.10 - Vomiting, unspecified Is this a current diagnosis for this admission?: Yes Plan: 06/20/2019-continue symptomatic management with as needed medications. 06/21/2019-resolved (6) Urinary tract infection Qualifiers: Urinary tract infection type: acute cystitis Hematuria presence: without hematuria Qualified Code(s): N30.00 - Acute cystitis without hematuria Is this a current diagnosis for this admission?: Yes Plan: 06/21/2019-urine culture revealed urogenital alena as well as group be beta- hemolytic strep. This should be covered by current antibiotic regimen. - Time Time Spent with patient: 15-24 minutes Medications reviewed and adjusted accordingly: Yes Anticipated discharge: Home
[2019-06-21] MEDS ORDERED: PANTOPRAZOLE SODIUM 40 MG TABLET.DR PO ONE (21:30)
[2019-06-22] MEDS: IMIPENEM/CILASTATIN SODIUM 500 MG in NORMAL SALINE 100 ML IV SCH ×2 (05:14→14:00)
[2019-06-22] MEDS ORDERED: PANTOPRAZOLE SODIUM 40 MG TABLET.DR PO SCH (06:00)
[2019-06-22 07:42] LABS: ABSOLUTE BASOPHILS # (AUTO) 0.1 10^3/uL (0.0-0.2); ABSOLUTE EOSINOPHILS # (AUTO) 0.2 10^3/uL (0.0-0.6); ABSOLUTE MONOCYTES (AUTO) 0.6 10^3/uL (0.1-1.4); ABSOLUTE NEUT (AUTO) 6.3 10^3/uL (1.7-8.2); BASOPHILS % (AUTO) 0.8 % (0-2); HEMOGLOBIN 9.3 g/dL (13.5-17.0); LYMPHOCYTES % (AUTO) 21.8 % (13-45); MEAN CORPUSCULAR HEMOGLOBIN 31.5 pg (27.0-33.4); MEAN CORPUSCULAR HGB CONC 34.5 g/dL (32.0-36.0); MEAN CORPUSCULAR VOLUME 91 fl (80-97); MONOCYTES % (AUTO) 6.6 % (3-13); PLATELET COUNT 125 10^3/uL (150-450); RED BLOOD COUNT 2.96 10^6/uL (4.35-5.55); RED CELL DISTRIBUTION WIDTH 13.5 % (11.5-14.0); SEGMENTED NEUTROPHILS % (AUTO) 68.8 % (42-78); TOTAL CELLS COUNTED % (AUTO) 100 %; WHITE BLOOD COUNT 9.2 10^3/uL (4.0-10.5)
[2019-06-22 08:04] LABS: ALBUMIN 2.7 g/dL (3.5-5.0); ALKALINE PHOSPHATASE 43 U/L (38-126); ANION GAP 7 (5-19); ASPARTATE AMINO TRANSFERASE 26 U/L (17-59); BILIRUBIN,DIRECT 0.1 mg/dL (0.0-0.4); BILIRUBIN,TOTAL 0.4 mg/dL (0.2-1.3); BLOOD UREA NITROGEN 15 mg/dL (7-20); CALCIUM 8.7 mg/dL (8.4-10.2); CARBON DIOXIDE 22 mmol/L (22-30); CHLORIDE 111 mmol/L (98-107); GLUCOSE 75 mg/dL (75-110); POTASSIUM 3.7 mmol/L (3.6-5.0); TOTAL PROTEIN 5.2 g/dL (6.3-8.2)
[2019-06-22] MEDS: DOCUSATE SODIUM 100 MG CAPSULE PO SCH (09:26)
[2019-06-22] MEDS: ASPIRIN 81 MG TABLET, ENT COATED PO SCH (09:26)
[2019-06-22] MEDS: HEPARIN SOD (PORCINE) 5,000 UNIT/ML 1 ML VIAL SUBCUT SCH (14:00)
--- NOTE | 2019-06-22 14:13 | PDOC DISCHARGE SUMMARY ---
Impression - Admit/DC Date/PCP Admission Date/Primary Care Provider: 06/20/19 00:37 Discharge Date: 06/22/19 - Discharge Diagnosis (1) Colitis Is this a current diagnosis for this admission?: Yes (2) Sepsis Is this a current diagnosis for this admission?: Yes (3) Acute renal insufficiency Is this a current diagnosis for this admission?: Yes (4) Hypotension Is this a current diagnosis for this admission?: Yes (5) Vomiting Is this a current diagnosis for this admission?: Yes (6) Urinary tract infection Is this a current diagnosis for this admission?: Yes - Additional Information Resuscitation Status: Full Code Discharge Diet: Cardiac, Other (Comments) - Advance slowly Discharge Activity: Activity As Tolerated Prescriptions: Ciprofloxacin HCl [Cipro 500 mg Tablet] 500 mg PO BID 5 Days #10 tablet Metronidazole 375 mg PO BID 5 Days #10 capsule Famotidine [Pepcid 20 mg Tablet] 20 mg PO DAILY 30 Days #30 tablet Home Medications: Aspirin [Adult Low Dose Aspirin EC] 81 mg PO DAILY 06/20/19 Amlodipine Besylate [Norvasc 5 mg Tablet] 5 mg PO QAM 06/21/19 Losartan/Hydrochlorothiazide [Hyzaar 50-12.5 Tablet] 1 tab PO DAILY 06/21/19 Ciprofloxacin HCl [Cipro 500 mg Tablet] 500 mg PO BID 5 Days #10 tablet 06/22/19 Docusate Sodium [Colace 100 mg Capsule] 100 mg PO BID capsule 06/22/19 Famotidine [Pepcid 20 mg Tablet] 20 mg PO DAILY 30 Days #30 tablet 06/22/19 Metronidazole 375 mg PO BID 5 Days #10 capsule 06/22/19 History of Present Illiness History of Present Illness: FREDO QUINTERO is a 84 year old male who was having several days of constipation with nausea and vomiting. He has a past medical history of hypertension. He began to have increased abdominal pain. He was found to have an elevated serum creatinine, elevated white blood cell count and a CT scan suggestive of colitis. He was referred to the hospital service for admission for IV fluids and antibiotics. Hospital Course Hospital Course: The patient had an unremarkable hospital course. With IV antibiotics and IV fluids he was feeling better on a daily basis. He advanced the diet from clears to soft mechanical. He has tolerated 2 meals without difficulty and is just re ceiving his lunch meal tray. He will complete antibiotic therapy as an outpatient and he will advance his diet slowly. Physical Exam Vital Signs: Temp Pulse Resp BP Pulse Ox 98.6 F 47 L 15 128/54 H 98 06/22/19 11:22 06/22/19 11:22 06/22/19 08:17 06/22/19 11:22 06/22/19 11:22 Intake & Output 06/21/19 06/22/19 06/23/19 06:59 06:59 06:59 Intake Total 1580 1725 Output Total 325 800 Balance 1255 925 Weight 64.7 kg 66.6 kg General appearance: PRESENT: no acute distress, cooperative, well-developed Head exam: PRESENT: atraumatic, normocephalic Eye exam: PRESENT: conjunctiva pink. ABSENT: scleral icterus Ear exam: PRESENT: normal external ear exam. ABSENT: bleeding, drainage Mouth exam: PRESENT: moist, tongue midline Respiratory exam: PRESENT: clear to auscultation darnell, symmetrical, unlabored. ABSENT: accessory muscle use, rales, rhonchi, tachypnea, wheezes Cardiovascular exam: PRESENT: RRR, +S1, +S2 GI/Abdominal exam: PRESENT: normal bowel sounds, soft. ABSENT: distended, tenderness Rectal exam: PRESENT: deferred Gentrourinary exam: ABSENT: indwelling catheter Extremities exam: ABSENT: joint swelling, pedal edema Musculoskeletal exam: PRESENT: full ROM, normal inspection. ABSENT: deformity Neurological exam: PRESENT: alert, awake, oriented to person, oriented to place, oriented to time, oriented to situation, CN II-XII grossly intact Psychiatric exam: PRESENT: appropriate affect. ABSENT: agitated, anxious Focused psych exam: ABSENT: delusional, restlessness Skin exam: PRESENT: dry, warm. ABSENT: rash Results Laboratory Results: WBC 9.2 10^3/uL (4.0-10.5) 06/22/19 06:38 RBC 2.96 10^6/uL (4.35-5.55) L 06/22/19 06:38 Hgb 9.3 g/dL (13.5-17.0) L 06/22/19 06:38 Hct 27.0 % (37.9-51.0) L 06/22/19 06:38 MCV 91 fl (80-97) 06/22/19 06:38 MCH 31.5 pg (27.0-33.4) 06/22/19 06:38 MCHC 34.5 g/dL (32.0-36.0) 06/22/19 06:38 RDW 13.5 % (11.5-14.0) 06/22/19 06:38 Plt Count 125 10^3/uL (150-450) L 06/22/19 06:38 Lymph % (Auto) 21.8 % (13-45) 06/22/19 06:38 [place] % (Auto) 6.6 % (3-13) 06/22/19 06:38 Eos % (Auto) 2.0 % (0-6) 06/22/19 06:38 Baso % (Auto) 0.8 % (0-2) 06/22/19 06:38 Absolute Neuts (auto) 6.3 10^3/uL (1.7-8.2) 06/22/19 06:38 Absolute Lymphs (auto) 2.0 10^3/uL (0.5-4.7) 06/22/19 06:38 Absolute Monos (auto) 0.6 10^3/uL (0.1-1.4) 06/22/19 06:38 Absolute Eos (auto) 0.2 10^3/uL (0.0-0.6) 06/22/19 06:38 Absolute Basos (auto) 0.1 10^3/uL (0.0-0.2) 06/22/19 06:38 Total Counted 100 06/20/19 04:49 Seg Neutrophils % 68.8 % (42-78) 06/22/19 06:38 Seg Neuts % (Manual) 80 % (42-78) H 06/20/19 04:49 Band Neutrophils % 5 % (3-5) 06/20/19 04:49 Lymphocytes % (Manual) 10 % (13-45) L 06/20/19 04:49 Monocytes % (Manual) 5 % (3-13) 06/20/19 04:49 Eosinophils % (Manual) 0 % (0-6) 06/20/19 04:49 Basophils % (Manual) 0 % (0-2) 06/20/19 04:49 Abs Neuts (Manual) 19.4 10^3/uL (1.7-8.2) H 06/20/19 04:49 Abs Lymphs (Manual) 2.3 10^3/uL (0.5-4.7) 06/20/19 04:49 Abs Monocytes (Manual) 1.1 10^3/uL (0.1-1.4) 06/20/19 04:49 Absolute Eos (Manual) 0.0 10^3/uL (0.0-0.6) 06/20/19 04:49 Abs Basophils (Manual) 0.0 10^3/uL (0.0-0.2) 06/20/19 04:49 Platelet Comment DECREASED 06/20/19 04:49 RBC Morph Comment NORMO-CYTIC/CHROMIC 06/20/19 04:49 VBG pH 7.35 (7.30-7.42) 06/19/19 21:35 VBG pCO2 34.0 mmHg (35-63) L 06/19/19 21:35 VBG HCO3 18.3 mmol/L (20-32) L 06/19/19 21:35 VBG Base Excess -6.5 mmol/L 06/19/19 21:35 Sodium 140.2 mmol/L (137-145) 06/22/19 06:38 Potassium 3.7 mmol/L (3.6-5.0) 06/22/19 06:38 Chloride 111 mmol/L (98-107) H 06/22/19 06:38 Carbon Dioxide 22 mmol/L (22-30) 06/22/19 06:38 Anion Gap 7 (5-19) 06/22/19 06:38 BUN 15 mg/dL (7-20) 06/22/19 06:38 Creatinine 1.21 mg/dL (0.52-1.25) 06/22/19 06:38 Est GFR ( Amer) > 60 (>60) 06/22/19 06:38 Est GFR (MDRD) Non-Af 57 (>60) L 06/22/19 06:38 Glucose 75 mg/dL (75-110) 06/22/19 06:38 POC Glucose 108 mg/dL (70-110) 06/19/19 23:04 Lactic Acid 1.4 mmol/L (0.7-2.1) 06/20/19 05:50 Calcium 8.7 mg/dL (8.4-10.2) 06/22/19 06:38 Total Bilirubin 0.4 mg/dL (0.2-1.3) 06/22/19 06:38 Direct Bilirubin 0.1 mg/dL (0.0-0.4) 06/22/19 06:38 Neonat Total Bilirubin Not Reportable 06/22/19 06:38 Neonat Direct Bilirubin Not Reportable 06/22/19 06:38 Neonat Indirect Bili Not Reportable 06/22/19 06:38 AST 26 U/L (17-59) 06/22/19 06:38 ALT 13 U/L (<50) 06/22/19 06:38 Alkaline Phosphatase 43 U/L (38-126) 06/22/19 06:38 Troponin I < 0.012 ng/mL 06/19/19 21:35 Total Protein 5.2 g/dL (6.3-8.2) L 06/22/19 06:38 Albumin 2.7 g/dL (3.5-5.0) L 06/22/19 06:38 Lipase 37.4 U/L (23-300) 06/19/19 21:35 Urine Color YELLOW 06/19/19 22:46 Urine Appearance SLIGHTLY-CLOUDY 06/19/19 22:46 Urine pH 5.0 (5.0-9.0) 06/19/19 22:46 Ur Specific [place] 1.014 06/19/19 22:46 Urine Protein NEGATIVE mg/dL (NEGATIVE) 06/19/19 22:46 Urine Glucose (UA) NEGATIVE mg/dL (NEGATIVE) 06/19/19 22:46 Urine Ketones NEGATIVE mg/dL (NEGATIVE) 06/19/19 22:46 Urine Blood NEGATIVE (NEGATIVE) 06/19/19 22:46 Urine Nitrite NEGATIVE (NEGATIVE) 06/19/19 22:46 Urine Bilirubin NEGATIVE (NEGATIVE) 06/19/19 22:46 Urine Urobilinogen NEGATIVE mg/dL (<2.0) 06/19/19 22:46 Ur Leukocyte Esterase LARGE (NEGATIVE) H 06/19/19 22:46 Urine WBC (Auto) 8 /HPF 06/19/19 22:46 Urine RBC (Auto) 1 /HPF 06/19/19 22:46 U Hyaline Cast (Auto) 18 /LPF 06/19/19 22:46 Squamous Epi Cells Auto <1 /HPF 06/19/19 22:46 Urine Mucus (Auto) OCC /LPF 06/19/19 22:46 Urine Ascorbic Acid NEGATIVE (NEGATIVE) 06/19/19 22:46 06/19/19 21:35 Troponin I < 0.012 Impressions: Chest X-Ray 06/19/19 21:37 IMPRESSION: Negative low lung volume study. copyright 2010 [employer]- All Rights Reserved Abdomen/Pelvis CT 06/19/19 22:42 IMPRESSION: Mild circumferential wall thickening involving the rectosigmoid colonic wall. Correlate for an infectious or inflammatory colitis. Prostatomegaly. Cholelithiasis and/or gallbladder sludge. Tiny hiatal hernia. TECHNICAL DOCUMENTATION: Quality ID # 436: Final reports with documentation of one or more dose reduction techniques (e.g., Automated exposure control, adjustment of the mA and/or kV according to patient size, use of iterative reconstruction technique) copyright 2010 [employer]- All Rights Reserved Plan Health Concerns: Because of colitis patient would benefit from a colonoscopy post discharge. Plan of Treatment: Complete antibiotics as an outpatient. Encourage at least 3 L of fluids daily. Resume antihypertensive medications and avoid sodium. Goals: Complete resolution of colitis Time Spent: Greater than 30 Minutes Stroke Is this a Stroke Patient?: No Acute Heart Failure - Is this a Heart Failure Patient?: No
[2019-06-22 19:30] VITALS: BP 118/57
== END 2019-06-22 15:50 | disposition home or self-care (01) | DRG 872 ==
LOC: ER 20:52 → EH 06-20 00:37 → 3S 06-20 02:01
PROVIDERS: ADMIT Internal Medicine; ATTEND Internal Medicine
DX: A41.9 Sepsis, unspecified organism (principal); A09 Infectious gastroenteritis and colitis, unspecified; N39.0 Urinary tract infection, site not specified; D50.9 Iron deficiency anemia, unspecified; N28.9 Disorder of kidney and ureter, unspecified; I10 Essential (primary) hypertension; I25.10 Atherosclerotic heart disease of native coronary artery without angina pectoris; Z95.1 Presence of aortocoronary bypass graft; Z82.49 Family history of ischemic heart disease and other diseases of the circulatory system; K59.00 Constipation, unspecified; B95.4 Other streptococcus as the cause of diseases classified elsewhere
CPT/HCPCS: 36415; 71045; 74176; 80048; 80053; 81001; 82803; 82962; 83605; 83690; 84484; 85025; 87040; 87086; 87088; 93005; 93010; 94799; 96361; 96365; 96367; 99291; J0743; J1644; J2543; J3370; J3490; J7030; J7050; S0119